=== PATIENT | male | born 1975 | race Caucasian/White ===

== ENCOUNTER 2023-04-14 17:42 | Outpatient (REF) | payer MEDICAID, SELFPAY ==
[2023-04-14 21:05] LABS: HCT 40.4 % (40.0-50.0); HGB 13.9 g/dL (13.5-17.5); MCH 40.5 pg (27.0-33.0); MCHC 34.4 % (32.0-36.0); MPV 10.4 fL (8.0-11.0); Platelet Count 302 10^3/uL (130-400); RBC 3.43 10^6/uL (4.36-5.78); RDW 14.5 % (11.8-14.1); RDW-SD 63.6 fL; WBC 11.74 10^3/uL (4.4-10.8)
[2023-04-14 21:25] LABS: MCV 118 fL (80-95); Prothrombin Time 10.4 sec (9.3-11.0)
[2023-04-14 21:28] LABS: Hemoglobin A1C 5.2 % (<5.7)
[2023-04-14 22:32] LABS: ALT 69 U/L (16-63); AST 121 U/L (15-37); Albumin 2.8 g/dL (3.4-5.0); Alkaline Phosphatase 364 U/L (46-116); Anion Gap 9.7 mmol/L (3-11); BUN 7 mg/dL (7-18); Bilirubin, Total 0.7 mg/dL (0.2-1.0); CO2 25.3 mmol/L (21.0-32.0); CREATININE 0.7 mg/dL (0.70-1.30); Calcium 8.9 mg/dL (8.5-10.1); Calculated LDL 87 mg/dL (<100); Chloride 99 mmol/L (98-107); Cholesterol 150 mg/dL (<200); Estimated GFR 112.95 (mL/min/1.73m2); Folate 3.7 ng/mL (8.6-20.0); Glucose 101 mg/dL (74-106); HDL Cholesterol 36 mg/dL (40-60); Potassium 4.1 mmol/L (3.5-5.1); Sodium 134 mmol/L (136-145); Total Protein 7.1 g/dL (6.4-8.2); Triglyceride 135 mg/dL (<150); Vitamin B12 538 pg/mL (193-986)
[2023-04-16 10:42] LABS: HIV-1/2 Ag & Ab Screen Negative (Negative)
[2023-04-18 08:34] LABS: Hepatitis B Surface Ag Negative (Negative)
[2023-04-18 09:28] LABS: Hep B Core Antibody Negative (Negative)
[2023-04-18 11:14] LABS: HCV RNA Detection Quantitative 5850000 IU/mL (Undetected); HCV RNA Qualitative Detected (Undetected)
[2023-04-18 11:19] LABS: Hep A Total Ab w Rflx IgM Positive (Negative)
[2023-04-18 16:25] LABS: Hep A Antibody IgM Negative (Negative)
[2023-04-19 09:33] LABS: HCV Genotype 1a (Undetected)
== END 2023-04-14 17:43 | disposition home or self-care (01) ==
LOC: NCHCN 17:42
PROVIDERS: PCP Family Medicine; Visit Provider Family Medicine
DX: K75.81 Nonalcoholic steatohepatitis (NASH) (principal); K70.0 Alcoholic fatty liver; I10 Essential (primary) hypertension; R94.5 Abnormal results of liver function studies; B18.2 Chronic viral hepatitis C; R74.8 Abnormal levels of other serum enzymes; D75.89 Other specified diseases of blood and blood-forming organs; R73.09 Other abnormal glucose; E66.3 Overweight; Z11.4 Encounter for screening for human immunodeficiency virus [HIV]; E78.5 Hyperlipidemia, unspecified
CPT/HCPCS: 80053; 80061; 85027; 86704; 86709; 87340; 87389; 87522; 82607; 82746; 83036; 85610; 87521

== ENCOUNTER 2023-07-20 16:25 | Outpatient (REF) | payer MEDICAID, SELFPAY ==
[2023-07-20 21:06] LABS: Abs Immature Grans 0.04 10^3/uL (0.0-0.06); Absolute Basophil Count 0.05 10^3/uL (0.0-0.2); Absolute Eosinophil Count 0.11 10^3/uL (0.0-0.7); Absolute Lymphocyte Count 1.87 10^3/uL (1.2-3.4); Basophils % 0.4; Eosinophils % 0.8; HCT 43.9 % (40.0-50.0); HGB 14.5 g/dL (13.5-17.5); Immature Grans % 0.3; Lymphocytes % 13.8; MCH 31.9 pg (27.0-33.0); MCV 97 fL (80-95); MPV 10.5 fL (8.0-11.0); Monocytes % 8.9; Neutrophils % 75.8; Platelet Count 330 10^3/uL (130-400); RBC 4.55 10^6/uL (4.36-5.78); RDW 15.6 % (11.8-14.1); RDW-SD 55.1 fL; WBC 13.53 10^3/uL (4.4-10.8)
[2023-07-20 21:12] LABS: Absolute Neutrophil Count 10.26 10^3/uL (1.2-6.7)
[2023-07-20 21:20] LABS: ALT 66 U/L (16-63); AST 119 U/L (15-37); Albumin 2.9 g/dL (3.4-5.0); Alkaline Phosphatase 328 U/L (46-116); Anion Gap 9.8 mmol/L (3-11); BUN 4 mg/dL (7-18); Bilirubin, Total 1.1 mg/dL (0.2-1.0); CO2 26.2 mmol/L (21.0-32.0); CREATININE 0.7 mg/dL (0.70-1.30); Calcium 9.4 mg/dL (8.5-10.1); Chloride 100 mmol/L (98-107); Estimated GFR 112.25 (mL/min/1.73m2); Glucose 133 mg/dL (74-106); Lipase 92 U/L (16-77); Potassium 3.8 mmol/L (3.5-5.1); Sodium 136 mmol/L (136-145); Total Protein 8.1 g/dL (6.4-8.2)
== END 2023-07-20 16:26 | disposition home or self-care (01) ==
LOC: NCHCN 16:25
PROVIDERS: PCP Family Medicine; Visit Provider Family Medicine
DX: R10.11 Right upper quadrant pain
CPT/HCPCS: 80053; 83690; 85025

== ENCOUNTER 2024-06-22 14:51 | Outpatient (REF) | payer MEDICAID, SELFPAY ==
[2024-06-22 21:15] LABS: HGB 15.3 g/dL (13.5-17.5); MCH 31.2 pg (27.0-33.0); MCHC 33.3 % (32.0-36.0); MCV 94 fL (80-95); MPV 10.5 fL (8.0-11.0); Platelet Count 228 10^3/uL (130-400); RBC 4.91 10^6/uL (4.36-5.78); RDW 15.7 % (11.8-14.1); RDW-SD 54.5 fL
[2024-06-22 21:44] LABS: ALT 87 U/L (16-63); AST 68 U/L (15-37); Albumin 3.9 g/dL (3.4-5.0); Alkaline Phosphatase 174 U/L (46-116); Anion Gap 7.5 mmol/L (3-11); BUN 13 mg/dL (7-18); Bilirubin, Total 0.29 mg/dL (0.2-1.0); CO2 29.5 mmol/L (21.0-32.0); Calcium 9.4 mg/dL (8.5-10.1); Chloride 104 mmol/L (98-107); Estimated GFR 91.12 (mL/min/1.73m2); Glucose 99 mg/dL (74-106); Potassium 4.4 mmol/L (3.5-5.1); Sodium 141 mmol/L (136-145); Total Protein 8.2 g/dL (6.4-8.2)
== END 2024-06-22 14:52 | disposition home or self-care (01) ==
LOC: NCHCN 14:51
PROVIDERS: PCP Family Medicine; Visit Provider Family Medicine
DX: K74.60 Unspecified cirrhosis of liver (principal); B18.2 Chronic viral hepatitis C
CPT/HCPCS: 80053; 85027; 85610

== ENCOUNTER 2025-02-05 20:01 | Outpatient (REF) | payer MEDICAID, SELFPAY ==
[2025-02-05 20:42] LABS: HCT 50.6 % (40.0-50.0); HGB 17.1 g/dL (13.5-17.5); MCH 32.7 pg (27.0-33.0); MCHC 33.8 % (32.0-36.0); MCV 97 fL (80-95); MPV 10.7 fL (8.0-11.0); Platelet Count 181 10^3/uL (130-400); RBC 5.23 10^6/uL (4.36-5.78); RDW 13.7 % (11.8-14.1); RDW-SD 49.4 fL; WBC 9.78 10^3/uL (4.4-10.8)
[2025-02-05 21:13] LABS: ALT 186 U/L (16-63); AST 160 U/L (15-37); Albumin 4.2 g/dL (3.4-5.0); Alkaline Phosphatase 188 U/L (46-116); Anion Gap 12.2 mmol/L (3-11); BUN 8 mg/dL (7-18); Bilirubin, Total 0.8 mg/dL (0.2-1.0); CO2 23.8 mmol/L (21.0-32.0); Calcium 9.6 mg/dL (8.5-10.1); Chloride 98 mmol/L (98-107); Estimated GFR 107.15 (mL/min/1.73m2); Glucose 165 mg/dL (74-106); Potassium 4.4 mmol/L (3.5-5.1); Sodium 134 mmol/L (136-145); Total Protein 9.1 g/dL (6.4-8.2); Vitamin D 25 Total 16 ng/mL (30-100)
[2025-02-15 17:41] LABS: Testosterone, Free 39.1 pg/mL (35.0-155.0)
== END 2025-02-05 20:02 | disposition home or self-care (01) ==
LOC: NCHCN 20:01
PROVIDERS: PCP Family Medicine; Visit Provider Family Medicine
DX: K74.60 Unspecified cirrhosis of liver (principal); R53.82 Chronic fatigue, unspecified; E55.9 Vitamin D deficiency, unspecified
CPT/HCPCS: 80053; 82306; 84402; 84403; 85027